=== PATIENT | male | born 1945 | race Caucasian/White ===

== ENCOUNTER → 2019-02-14 | Outpatient (CLI) | payer MEDICARE, OTHER ==
[~2019-02-14] MED LIST: ASPIRIN 81M81 MG/TA2 PO; CELEBREX 200MG200 MG PO; DURICEF 500MG500 MG PO; LIPITOR20 MG PO; PRIL40 PO; ZESTRIL2.5 MG PO
== END ==
LOC: ZCOL.LAB 15:16
DX: Z11.2 Encounter for screening for other bacterial diseases (principal)